=== PATIENT | male | born 1965 | race Caucasian/White ===

== ENCOUNTER → 2017-12-18 | Outpatient (CLI) | payer OTHER | END | disposition home or self-care (01) | LOC: TOM 07:51 | DX: M93.272 Osteochondritis dissecans, left ankle and joints of left foot (principal) ==

== ENCOUNTER 2018-03-26 13:26 | Outpatient (CLI) | payer OTHER | END 2018-03-26 14:00 | disposition home or self-care (01) | LOC: NUCLEAR 13:26 | DX: M81.0 Age-related osteoporosis without current pathological fracture (principal) ==